=== PATIENT | female | born 1970 | race Caucasian/White ===

== ENCOUNTER → 2021-04-11 | Outpatient (CLI) | payer OTHER ==
[~2021-04-11] MED LIST: ALBU90OI; ALBU90OI INH; AZIT250 PO; CELE200 PO; CEPH500 PO; CLON.5 PO; CLON1 PO; CRUTCH4 USE; FEXO60; FLUO20 PO; HYDACE5 PO; IBUP600 PO; MELO7.5; METPRE4DP PO; MORP30ER PO; Monodox100 MG PO; NAPR550 PO; OXYC10ER PO; PHENTERMINE PO; PROCODE120 PO; PROP20 PO; QVAR7.3 G1 IH; SUMA25; TRAZ50 PO; TRIAOIA; ZOLP12.5 PO
== END | disposition home or self-care (01) ==
LOC: LAB 10:30 → LAB SHORT 10:30
PROVIDERS: Nurse Practitioner
DX: Z11.59 Encounter for screening for other viral diseases (principal); G25.81 Restless legs syndrome
CPT/HCPCS: 82607; 82728; 82746; 83735; 86735; 86762; 86765; 86787

== ENCOUNTER → 2022-10-02 | Outpatient (CLI) | payer OTHER ==
[2022-10-02 14:50] LABS: BASOPHILS ABSOLUTE AUTO 0.04 K/mm3 (0.00-0.23); BASOPHILS PERCENT AUTO 1 % (0-2); EOSINOPHILS ABSOLUTE AUTO 0.11 K/mm3 (0.00-0.68); EOSINOPHILS PERCENT AUTO 1 % (0-6); Hematocrit 40.6 % (33.0-51.0); IMMATURE GRAN ABSOLUTE AUTO 0.02 K/mm3 (0.00-0.10); IMMATURE GRAN PERCENT AUTO 0 % (0-1); LYMPHOCYTES ABSOLUTE AUTO 1.86 K/mm3 (0.84-5.20); LYMPHOCYTES PERCENT AUTO 23 % (21-46); MONOCYTES ABSOLUTE AUTO 0.64 K/mm3 (0.16-1.47); MONOCYTES PERCENT AUTO 8 % (4-13); Mean Corpuscular HGB 28.2 pg (26.0-34.0); Mean Corpuscular Volume 88 fL (80-100); Mean Platelet Volume 10.7 fL (9.1-12.4); NEUTROPHILS ABSOLUTE AUTO 5.54 K/mm3 (1.96-9.15); NEUTROPHILS PERCENT AUTO 68 % (41-73); Platelet Count 268 K/mm3 (150-400); RDW Coefficient Variation 13.8 % (11.7-14.2); RDW Standard Deviation 44.8 fL (35.1-46.3); Red Blood Cell Count 4.61 M/mm3 (3.80-5.20); White Blood Cell Count 8.21 K/mm3 (4.00-11.30)
[2022-10-02 18:19] LABS: Albumin, Blood 3.7 g/dL (3.4-5.0); Albumin/Globulin Ratio 1.2 (0.8-1.8); Bilirubin, Total 0.3 mg/dL (0.1-1.0); Bun/Creatinine Ratio 23.1 (12.0-20.0); Calcium, Blood 8.9 mg/dL (8.5-10.1); Creatinine, Blood 0.65 mg/dL (0.40-1.00); Globulin, Blood 3.2 g/dL (2.2-4.0); Total Protein, Blood 6.9 g/dL (6.4-8.2)
== END | disposition home or self-care (01) ==
LOC: LAB SHORT 13:08 → LAB 13:08
PROVIDERS: Family Medicine
DX: E55.9 Vitamin D deficiency, unspecified (principal); E66.01 Morbid (severe) obesity due to excess calories; R41.3 Other amnesia; Z68.41 Body mass index [BMI] 40.0-44.9, adult
CPT/HCPCS: 80053; 82306; 82607; 82746; 85025; 85651; 86592

== ENCOUNTER 2022-11-12 08:33 | Day surgery (SDC) | payer OTHER ==
[~2022-11-12] VITALS: Ht 162.6 cm; Wt 97.2 kg
[~2022-11-12 08:33] MED LIST changes: +BACL10 PO; +BUPR75 PO; +FLUT1DIS5 INH; +FURO20 PO; +Flonase 0.05% N16 GM; +GABA300 PO; +OMEPRAZOLE20 M1 PO; +POTA8 PO; +SUMA25 PO
[2022-11-12] MEDS ORDERED: Adipex-P37.5 MG PO (09:00)
[2022-11-13 05:10] LABS: BASOPHILS ABSOLUTE AUTO 0.03 K/mm3 (0.00-0.23); BASOPHILS PERCENT AUTO 0 % (0-2); EOSINOPHILS PERCENT AUTO 0 % (0-6); Hematocrit 34.3 % (33.0-51.0); Hemoglobin 11.2 g/dL (11.5-16.0); IMMATURE GRAN ABSOLUTE AUTO 0.08 K/mm3 (0.00-0.10); IMMATURE GRAN PERCENT AUTO 1 % (0-1); LYMPHOCYTES ABSOLUTE AUTO 1.37 K/mm3 (0.84-5.20); LYMPHOCYTES PERCENT AUTO 8 % (21-46); MONOCYTES ABSOLUTE AUTO 1.29 K/mm3 (0.16-1.47); MONOCYTES PERCENT AUTO 8 % (4-13); Mean Corpuscular HGB 28.3 pg (26.0-34.0); Mean Corpuscular HGB Conc 32.7 g/dL (31.5-36.5); Mean Corpuscular Volume 87 fL (80-100); Mean Platelet Volume 10.9 fL (9.1-12.4); NEUTROPHILS ABSOLUTE AUTO 14.23 K/mm3 (1.96-9.15); NEUTROPHILS PERCENT AUTO 84 % (41-73); Platelet Count 235 K/mm3 (150-400); RDW Coefficient Variation 13.2 % (11.7-14.2); RDW Standard Deviation 41.6 fL (35.1-46.3); Red Blood Cell Count 3.96 M/mm3 (3.80-5.20)
[2022-11-13 05:42] LABS: Bun/Creatinine Ratio 18.2 (12.0-20.0); Calcium, Blood 8.6 mg/dL (8.5-10.1); Creatinine, Blood 0.61 mg/dL (0.40-1.00); Magnesium, Blood 2.1 mg/dL (1.6-2.4); Potassium, Blood 3.9 mmol/L (3.5-5.5)
[2022-11-13] MEDS ORDERED: SULTRIDS PO (13:08)
[2022-11-13] MEDS ORDERED: Percocet 5-3251 EACH PO (13:08)
[2022-11-13] MEDS ORDERED: XARELTO10 M1 PO (13:09)
== END 2022-11-13 14:48 | disposition home or self-care (01) ==
LOC: ORSCMMR 08:33 → ORD 10:45 → SURS 14:59 → ORSCMMR 11-13 14:48 → ORD 12-17 14:30
PROVIDERS: Orthopaedic Surgery
PROC: 0SRD0J9 Replacement of Left Knee Joint with Synthetic Substitute, Cemented, Open Approach (ICD-10-PCS; principal; 2022-11-12 10:45)
DX: M17.12 Unilateral primary osteoarthritis, left knee (principal); J45.909 Unspecified asthma, uncomplicated; F41.9 Anxiety disorder, unspecified; F32.A Depression, unspecified
CPT/HCPCS: 36415; 73560-LT; 80048; 83735; 85025; 94640; 94664; 94760; 97110; 97116; 97161; 97530; A9270; C1713; C1776; J0171; J0690; J0735; J1100; J1200; J1885; J2250; J2370; J2405; J2704; J2795; J3010; J3370; J7120

== ENCOUNTER 2023-01-05 07:36 | Day surgery (SDC) | payer OTHER ==
[~2023-01-05] VITALS: Ht 162.6 cm; Wt 94.6 kg
[~2023-01-05 07:36] MED LIST changes: +Adipex-P37.5 MG PO; +Percocet 5-3251 EACH PO; +SULTRIDS PO; +XARELTO10 M1 PO
--- NOTE | 2023-01-05 09:51 | NUR ---
01/05/23 0951 Yennifer Alicia LEFT KNEE CLEANING WITH ALCOHOL AND CHG BRUSH PER SURGEON. SCAP NOTED ON LEFT KNEE INCISION
[2023-01-05 10:29] VITALS: BP 158/82
--- NOTE | 2023-01-05 11:52 | NUR ---
01/05/23 1152 Darryl Brandon IV REMOVED INTACT. SITE WNL. VITALS WITHIN 20% OF BASELINE THROUGHOUT STAY IN SDU AN UPON DISCHARGE. O2 100% UPON DISCHARGE, PULSE 70'S. PT REPORTED 4/10 PAIN UPON DISCHARGE BUT DESCRIBED PAIN TOLERABLE. SHE APPEARED CALM AND RELAXED AND EXPRESSED READINESS TO RETURN HOME.
== END 2023-01-05 11:30 | disposition home or self-care (01) ==
LOC: ORSCSDS 07:36
PROVIDERS: Orthopaedic Surgery
PROC: 0SSDXZZ Reposition Left Knee Joint, External Approach (ICD-10-PCS; principal; 2023-01-05 09:15)
DX: M24.662 Ankylosis, left knee (principal); J45.909 Unspecified asthma, uncomplicated; K21.9 Gastro-esophageal reflux disease without esophagitis; F32.A Depression, unspecified; F41.9 Anxiety disorder, unspecified; Z79.899 Other long term (current) drug therapy
CPT/HCPCS: A9270; J2250; J2405; J2704; J3010